=== PATIENT | female | born 1970 | race Caucasian/White ===

== ENCOUNTER 2019-05-11 10:35 | Emergency (ER) | payer OTHER ==
[~2019-05-11] VITALS: Ht 154.9 cm; Wt 54.5 kg
[~2019-05-11 10:35] MED LIST: CHOL200073 PO; LORA1TAB PO; OMEP20CA9 PO; TRAM50TA2 PO; ZOFRAN
[2019-05-11 10:43] VITALS: Ht 154.9 cm; Wt 54.5 kg
[2019-05-11] MEDS ORDERED: FAMO20TA18 PO (12:11)
[2019-05-11] MEDS ORDERED: ONDA4TAB13 PO (12:11)
[2019-05-11] MEDS ORDERED: NAPR-688 PO (12:11)
[2019-05-11] MEDS ORDERED: CETI10TA19 PO (12:11)
[2019-05-11] MEDS ORDERED: ARIP5TAB14 PO (12:11)
[2019-05-11] MEDS ORDERED: IBUP-1542 PO (12:11)
[2019-05-11] MEDS ORDERED: MULTI PO ×2 (12:11→12:12)
[2019-05-11] MEDS ORDERED: GABA300C16 PO (12:11)
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
[2019-05-11 12:51] VITALS: BP 114/81; PULSE 76; RESP 16
== END 2019-05-11 12:53 | disposition home or self-care (01) ==
LOC: E/R 10:35
DX: M54.9 Dorsalgia, unspecified (principal); M54.2 Cervicalgia; R94.02 Abnormal brain scan; Z76.5 Malingerer [conscious simulation]
CPT/HCPCS: 70450; 72125